=== PATIENT | male | born 1980 | race Hispanic/Latino ===

== ENCOUNTER 2021-04-10 12:11 | Inpatient (IN) | payer SELFPAY ==
[~2021-04-10] VITALS: Ht 175.3 cm; Wt 122.5 kg
[2021-04-10 12:57] LABS: BASOPHILS % 0.4 % (0.0-1.0); EOSINOPHILS # (AUTO) 0.1 (0.0-0.4); EOSINOPHILS % 0.8 % (0.0-6.0); HEMATOCRIT 42.7 % (38.2-49.6); HEMOGLOBIN 14.3 g/dL (14.0-18.0); LYMPHOCYTES # (AUTO) 0.8 (1.0-3.2); LYMPHOCYTES % 8.5 % (18.0-39.1); MEAN CORPUSCULAR HEMOGLOBIN 28.3 pg (28-32); MEAN CORPUSCULAR HGB CONC 33.5 g/dL (31-35); MEAN CORPUSCULAR VOLUME 84.4 fL (81-99); MONOCYTES # (AUTO) 0.4 (0.2-0.8); MONOCYTES % 4.1 % (4.4-11.3); NEUTROPHILS # (AUTO) 7.7 (2.1-6.9); NEUTROPHILS % 85.9 % (38.7-80.0); PLATELET COUNT 277 x10e3/uL (140-360); RED BLOOD COUNT 5.06 x10e6/uL (4.3-5.7); RED CELL DISTRIBUTION WIDTH 13.2 % (11.7-14.4)
[2021-04-10 13:02] LABS: INR 0.86; PROTHROMBIN TIME 12.4 seconds (11.9-14.5)
[2021-04-10 13:12] LABS: ALBUMIN 2.4 g/dL (3.5-5.0); ALBUMIN/GLOBULIN RATIO 0.5 (0.8-2.0); ANION GAP 16.3 mmol/L (8-16); CALCIUM 8.4 mg/dL (8.4-10.2); CREATININE, SERUM 2.5 mg/dL (0.72-1.25); POTASSIUM 4.3 mmol/L (3.5-5.1)
[2021-04-10] MEDS ORDERED: INSULIN REGULAR, HUMAN 100 UNIT/1 ML IV ONE ×2 (13:30→13:45)
[2021-04-10] MEDS ORDERED: SODIUM CHLORIDE 0.9% 1000ML 2,000 ML IV SCH (13:30)
[2021-04-10] MEDS ORDERED: SODIUM CHLORIDE 0.9% 1000ML 2,000 ML ONE (13:37)
[2021-04-10 13:47] LABS: ABG HCO3 23 mmol/L (22-26); ABG PCO2 36 mmHg (35-45); ABG PH 7.42 (7.35-7.45); ABG PO2 92 mmHg (80-105); ABG TCO2 24
[2021-04-10 13:51] LABS: AMPHETAMINES SCREEN,URINE NEGATIVE (NEGATIVE); BENZODIAZEPINES SCREEN,URINE NEGATIVE (NEGATIVE); CLARITY,URINE CLEAR (CLEAR); COLOR,URINE YELLOW (YELLOW); KETONES,URINE NEGATIVE (NEGATIVE); LEUKOCYTE ESTERASE ,URINE NEGATIVE (NEGATIVE); NITRITE,URINE NEGATIVE (NEGATIVE); PHENCYCLIDINE SCREEN,URINE NEGATIVE (NEGATIVE); PROTEIN,URINE DIPSTICK >=300 (NEGATIVE); URINE UROBILINOGEN 0.2 mg/dL (0.2 - 1)
[2021-04-10 14:03] LABS: BACTERIA,URINE RARE /HPF
[2021-04-10] MEDS ORDERED: INSULIN LISPRO 100 UNIT/1 ML 3ML VIAL SQ ONE (14:15)
[2021-04-10] MEDS ORDERED: ONDANSETRON HCL INJ 2MG/ML 2ML 2 MG/ML VIAL IV PRN (14:15)
[2021-04-10] MEDS ORDERED: DEXTROSE 50% SYRINGE 50 ML IV PRN ×3 (14:30→15:15)
[2021-04-10] MEDS: SODIUM CHLORIDE 0.9% 1000ML 1,000 ML IV SCH ×2 (14:40→22:08)
[2021-04-10 15:40] VITALS: BP 166/94
[2021-04-10 16:04] VITALS: BP 160/95
[2021-04-10] MEDS: INSULIN REGULAR, HUMAN 100 UNIT/1 ML SQ SCH ×2 (16:11→22:10)
[2021-04-10 16:16] VITALS: BP 160/95
[2021-04-10 16:20] VITALS: BP 160/95
[2021-04-10] MEDS ORDERED: METFORMIN HCL500 MG PO (16:24)
[2021-04-10] MEDS ORDERED: PLAVIX75 MG PO (16:25)
[2021-04-10] MEDS ORDERED: ASPIRIN81 MG PO (16:25)
[2021-04-10] MEDS ORDERED: CARVEDILOL3.125 MG PO (17:10)
[2021-04-10] MEDS ORDERED: FUROSEMIDE40 MG PO (17:11)
[2021-04-10] MEDS ORDERED: ATORVASTATIN CA40 MG PO (17:12)
[2021-04-10] MEDS ORDERED: MULTI-VITAMIN1 EACH PO (17:13)
[2021-04-10 20:51] VITALS: BP 140/95
[2021-04-10 20:58] VITALS: BP 140/95
[2021-04-10] MEDS ORDERED: INSULIN GLARGINE 100 UNITS/ML VIAL SQ ONE (21:00)
[2021-04-11] VITALS: BP 138/90
[2021-04-11 04:00] VITALS: BP 120/90
[2021-04-11 05:47] LABS: BASOPHILS % 0.4 % (0.0-1.0); EOSINOPHILS # (AUTO) 0.2 (0.0-0.4); EOSINOPHILS % 2.9 % (0.0-6.0); HEMATOCRIT 36.4 % (38.2-49.6); HEMOGLOBIN 12.2 g/dL (14.0-18.0); LYMPHOCYTES # (AUTO) 1.5 (1.0-3.2); LYMPHOCYTES % 20.6 % (18.0-39.1); MEAN CORPUSCULAR HEMOGLOBIN 28.6 pg (28-32); MEAN CORPUSCULAR HGB CONC 33.5 g/dL (31-35); MEAN CORPUSCULAR VOLUME 85.2 fL (81-99); MONOCYTES # (AUTO) 0.5 (0.2-0.8); MONOCYTES % 6.5 % (4.4-11.3); NEUTROPHILS # (AUTO) 5.1 (2.1-6.9); NEUTROPHILS % 69.1 % (38.7-80.0); PLATELET COUNT 234 x10e3/uL (140-360); RED BLOOD COUNT 4.27 x10e6/uL (4.3-5.7); RED CELL DISTRIBUTION WIDTH 13.2 % (11.7-14.4)
[2021-04-11 06:22] LABS: ANION GAP 12.2 mmol/L (8-16); CALCIUM 8.1 mg/dL (8.4-10.2); CREATININE, SERUM 2.12 mg/dL (0.72-1.25); POTASSIUM 3.2 mmol/L (3.5-5.1)
[2021-04-11] MEDS: SODIUM CHLORIDE 0.9% 1000ML 1,000 ML IV SCH (06:38)
[2021-04-11] MEDS ORDERED: INS LISP PRO/LISP HUMAN 75/25 100 UNITS/ML VIAL SC SCH (07:30)
[2021-04-11 08:00] VITALS: BP 135/84
[2021-04-11] MEDS: INSULIN REGULAR, HUMAN 100 UNIT/1 ML SQ SCH (08:13)
[2021-04-11 08:29] VITALS: BP 135/84
[2021-04-11] MEDS ORDERED: POTASSIUM CHLORIDE 10MEQ EA PO ONE (09:00)
[2021-04-11 10:27] VITALS: BP 153/88
== END 2021-04-11 11:09 | disposition home or self-care (01) | DRG 638 ==
LOC: ER 13:32 → ERHOLD 14:17 → MED/SURG 15:40
PROVIDERS: ADMIT Internal Medicine; ATTEND Internal Medicine
DX: E11.65 Type 2 diabetes mellitus with hyperglycemia (principal); N17.9 Acute kidney failure, unspecified; E87.1 Hypo-osmolality and hyponatremia; R27.0 Ataxia, unspecified; Z91.14 Patient's other noncompliance with medication regimen; Z20.822 Contact with and (suspected) exposure to COVID-19; Z59.89 Other problems related to housing and economic circumstances; E11.22 Type 2 diabetes mellitus with diabetic chronic kidney disease; I12.9 Hypertensive chronic kidney disease with stage 1 through stage 4 chronic kidney disease, or unspecified chronic kidney disease; N18.30 Chronic kidney disease, stage 3 unspecified; Z79.899 Other long term (current) drug therapy; Z86.73 Personal history of transient ischemic attack (TIA), and cerebral infarction without residual deficits; I25.2 Old myocardial infarction
CPT/HCPCS: 36415; 36600; 70450; 70551; 80048; 80053; 80307; 81001; 82805; 82948; 83735; 85025; 85610; 93005; 94799; 99284; J1815; J1817; J7030; U0002

== ENCOUNTER 2022-08-03 16:30 | Inpatient (IN) | payer OTHER ==
[~2022-08-03] VITALS: Ht 162.6 cm; Wt 122.5 kg
[~2022-08-03 16:30] MED LIST: ASPIRIN81 MG PO; ATORVASTATIN CA40 MG PO; CARVEDILOL3.125 MG PO; FUROSEMIDE40 MG PO; METFORMIN HCL500 MG PO; MULTI-VITAMIN1 EACH PO; PLAVIX75 MG PO
[2022-08-03 17:18] LABS: BASOPHILS % 0.2 % (0.0-1.0); EOSINOPHILS # (AUTO) 0.1 (0.0-0.4); EOSINOPHILS % 0.5 % (0.0-6.0); HEMATOCRIT 34.8 % (38.2-49.6); HEMOGLOBIN 10.9 g/dL (14.0-18.0); LYMPHOCYTES # (AUTO) 0.3 (1.0-3.2); LYMPHOCYTES % 2.2 % (18.0-39.1); MEAN CORPUSCULAR HEMOGLOBIN 28.2 pg (28-32); MEAN CORPUSCULAR HGB CONC 31.3 g/dL (31-35); MEAN CORPUSCULAR VOLUME 90.2 fL (81-99); MONOCYTES # (AUTO) 0.7 (0.2-0.8); MONOCYTES % 5.5 % (4.4-11.3); NEUTROPHILS # (AUTO) 11.5 (2.1-6.9); NEUTROPHILS % 91.1 % (38.7-80.0); PLATELET COUNT 298 x10e3/uL (140-360); RED BLOOD COUNT 3.86 x10e6/uL (4.3-5.7); RED CELL DISTRIBUTION WIDTH 15.5 % (11.7-14.4)
[2022-08-03] MEDS ORDERED: NAPROXEN250 MG PO (17:20)
[2022-08-03 17:43] LABS: ALBUMIN 1.9 g/dL (3.5-5.0); ALBUMIN/GLOBULIN RATIO 0.4 (0.8-2.0); ANION GAP 21.8 mmol/L (8-16); CALCIUM 7.6 mg/dL (8.4-10.2); CREATININE, SERUM 6.84 mg/dL (0.72-1.25); POTASSIUM 3.8 mmol/L (3.5-5.1)
[2022-08-03 17:54] LABS: CLARITY,URINE CLOUDY (CLEAR); COLOR,URINE YELLOW (YELLOW); KETONES,URINE NEGATIVE (NEGATIVE); LEUKOCYTE ESTERASE ,URINE TRACE (NEGATIVE); NITRITE,URINE NEGATIVE (NEGATIVE); PROTEIN,URINE DIPSTICK >=300 (NEGATIVE); URINE UROBILINOGEN 0.2 mg/dL (0.2 - 1)
[2022-08-03 17:59] LABS: AMORPHOUS SEDIMENT,URINE MANY (FEW); BACTERIA,URINE MANY /HPF; EPITHELIAL CELLS,URINE FEW /LPF; MUCUS,URINE MANY (RARE)
[2022-08-03] MEDS ORDERED: SODIUM CHLORIDE 0.9% 1000ML 1,000 ML IV SCH (18:15)
[2022-08-03] MEDS: SODIUM CHLORIDE 0.9% 1000ML 1,000 ML IV SCH (19:23)
[2022-08-03] MEDS: ATORVASTATIN 40 MG TAB PO SCH (21:00)
[2022-08-03 21:33] VITALS: BP 103/60
[2022-08-03 21:37] LABS: CHOL/HDL RATIO 3.5 (3.9-4.7)
[2022-08-03 22:15] VITALS: BP 103/60
[2022-08-03 22:17] VITALS: BP 103/60
[2022-08-04] VITALS (7 sets, daily range): BP systolic 93–120; BP diastolic 59–77
[2022-08-04] MEDS: SODIUM CHLORIDE 0.9% 1000ML 1,000 ML IV SCH ×2 (03:40→09:56)
[2022-08-04 05:59] LABS: BASOPHILS % 0.3 % (0.0-1.0); EOSINOPHILS % 0.3 % (0.0-6.0); HEMATOCRIT 33.6 % (38.2-49.6); HEMOGLOBIN 10.4 g/dL (14.0-18.0); LYMPHOCYTES # (AUTO) 0.4 (1.0-3.2); MEAN CORPUSCULAR HEMOGLOBIN 27.8 pg (28-32); MEAN CORPUSCULAR VOLUME 89.8 fL (81-99); MONOCYTES # (AUTO) 0.8 (0.2-0.8); MONOCYTES % 6.8 % (4.4-11.3); NEUTROPHILS # (AUTO) 10.4 (2.1-6.9); NEUTROPHILS % 89.1 % (38.7-80.0); PLATELET COUNT 281 x10e3/uL (140-360); RED BLOOD COUNT 3.74 x10e6/uL (4.3-5.7); RED CELL DISTRIBUTION WIDTH 15.6 % (11.7-14.4)
[2022-08-04 06:33] LABS: ANION GAP 22.8 mmol/L (8-16); CALCIUM 7.2 mg/dL (8.4-10.2); CREATININE, SERUM 7.3 mg/dL (0.72-1.25); POTASSIUM 3.8 mmol/L (3.5-5.1)
[2022-08-04 07:03] LABS: MAGNESIUM 1.8 MG/DL (1.3-2.1); PHOSPHORUS 9.1 MG/DL (2.3-4.7)
[2022-08-04] MEDS: ONDANSETRON HCL INJ 2MG/ML 2ML 2 MG/ML VIAL IV PRN ×3 (09:51→17:53)
[2022-08-04] MEDS: MULTIVITAMINS/MINERALS TAB PO SCH (09:51)
[2022-08-04] MEDS: Morphine 4mg INJECTION 4 MG/ML INJ IV PRN ×3 (09:51→17:53)
[2022-08-04] MEDS: CLOPIDOGREL BISULFATE 75 MG TAB PO SCH (09:51)
[2022-08-04] MEDS: CARVEDILOL 3.125 MG TAB PO SCH ×2 (09:52→17:00)
[2022-08-04] MEDS: ASPIRIN 81 MG CHEW TAB PO SCH (09:52)
[2022-08-04] MEDS ORDERED: SODIUM BICARBONATE 8.4% 50 ML in SODIUM CHLORIDE 0.45% 1,000 ML IV SCH (12:30)
[2022-08-04] MEDS: Doxycycline IV 100 MG in SODIUM CHLORIDE 0.9% 100 ML IV SCH ×2 (14:02→23:39)
[2022-08-04] MEDS ORDERED: SODIUM BICARBONATE 8.4% 150 ML in DEXTROSE 5% 1,000 ML IV SCH (16:00)
[2022-08-04] MEDS ORDERED: SODIUM BICARBONATE 8.4% IV SCH (16:00)
[2022-08-04] MEDS ORDERED: DEXTROSE 5% IV SCH (16:00)
[2022-08-04] MEDS: FUROSEMIDE INJ 10 MG/ML 2 ML VIAL IV SCH ×2 (16:59→17:06)
[2022-08-04 19:23] LABS: ANION GAP 22.4 mmol/L (8-16); CALCIUM 7.1 mg/dL (8.4-10.2); CREATININE, SERUM 7.56 mg/dL (0.72-1.25); POTASSIUM 4.4 mmol/L (3.5-5.1)
[2022-08-04] MEDS: ATORVASTATIN 40 MG TAB PO SCH (23:38)
[2022-08-05 05:59] LABS: BASOPHILS % 0.3 % (0.0-1.0); EOSINOPHILS # (AUTO) 0.1 (0.0-0.4); EOSINOPHILS % 0.8 % (0.0-6.0); HEMATOCRIT 30.5 % (38.2-49.6); HEMOGLOBIN 9.4 g/dL (14.0-18.0); LYMPHOCYTES # (AUTO) 0.4 (1.0-3.2); LYMPHOCYTES % 3.3 % (18.0-39.1); MEAN CORPUSCULAR HEMOGLOBIN 27.6 pg (28-32); MEAN CORPUSCULAR HGB CONC 30.8 g/dL (31-35); MEAN CORPUSCULAR VOLUME 89.7 fL (81-99); MONOCYTES # (AUTO) 0.9 (0.2-0.8); MONOCYTES % 7.4 % (4.4-11.3); NEUTROPHILS # (AUTO) 10.4 (2.1-6.9); NEUTROPHILS % 87.9 % (38.7-80.0); PLATELET COUNT 298 x10e3/uL (140-360); RED CELL DISTRIBUTION WIDTH 15.7 % (11.7-14.4)
[2022-08-05 06:27] LABS: ANION GAP 23.1 mmol/L (8-16); CALCIUM 7.1 mg/dL (8.4-10.2); CREATININE, SERUM 7.71 mg/dL (0.72-1.25); POTASSIUM 4.1 mmol/L (3.5-5.1)
[2022-08-05 06:53] LABS: MAGNESIUM 1.8 MG/DL (1.3-2.1); PHOSPHORUS 9.4 MG/DL (2.3-4.7)
[2022-08-05] MEDS ORDERED: DEXTROSE 5% 1,000 ML IV ONE (06:53)
[2022-08-05 07:49] VITALS: BP 105/72
[2022-08-05 08:10] VITALS: BP 105/72
[2022-08-05] MEDS: CLOPIDOGREL BISULFATE 75 MG TAB PO SCH (08:12)
[2022-08-05] MEDS: Doxycycline IV 100 MG in SODIUM CHLORIDE 0.9% 100 ML IV SCH ×2 (08:12→21:52)
[2022-08-05] MEDS: Morphine 4mg INJECTION 4 MG/ML INJ IV PRN ×3 (08:13→17:58)
[2022-08-05] MEDS: MULTIVITAMINS/MINERALS TAB PO SCH (08:13)
[2022-08-05] MEDS: ASPIRIN 81 MG CHEW TAB PO SCH (08:13)
[2022-08-05] MEDS: ONDANSETRON HCL INJ 2MG/ML 2ML 2 MG/ML VIAL IV PRN ×2 (08:13→17:58)
[2022-08-05] MEDS: CARVEDILOL 3.125 MG TAB PO SCH ×2 (08:13→18:04)
[2022-08-05] MEDS: FUROSEMIDE INJ 10 MG/ML 2 ML VIAL IV SCH (08:13)
[2022-08-05] MEDS ORDERED: FUROSEMIDE INJ 100 MG in SODIUM CHLORIDE 0.9% 90 ML IV SCH (11:00)
[2022-08-05] MEDS ORDERED: SODIUM CHLORIDE 0.9% 250ML 250 ML ONE (11:51)
[2022-08-05 11:56] VITALS: BP 101/60
[2022-08-05] MEDS ORDERED: ALBUMIN 25% 25GM 100ML 0.25 GM/ML BTL IV SCH (12:00)
[2022-08-05] MEDS: ALBUMIN 25% 25GM 100ML 100 ML IV SCH ×3 (12:01→23:39)
[2022-08-05] MEDS: CALCIUM GLUC 1 G/50 ML NACL 50 ML IV SCH ×2 (13:06→13:49)
[2022-08-05 13:59] LABS: CREATININE,URINE RANDOM 122.37 mg/dL (63-166)
[2022-08-05 14:00] LABS: TOTAL PROTEIN, URINE 348.9 mg/dL (1-14)
[2022-08-05 17:12] VITALS: BP 119/83
[2022-08-05] MEDS: SODIUM BICARBONATE 650 MG TAB PO SCH ×2 (18:02→21:53)
[2022-08-05] MEDS: CALCIUM ACETATE 667 MG GELCAP PO SCH ×2 (18:03→21:53)
[2022-08-05] MEDS: FUROSEMIDE INJ 100 MG in SODIUM CHLORIDE 0.9% 90 ML IV SCH ×2 (19:00→23:36)
[2022-08-05 20:00] VITALS: BP 142/97
[2022-08-05] MEDS ORDERED: DEXTROSE 50% SYRINGE 50 ML IV PRN (20:45)
[2022-08-05 21:00] VITALS: BP 142/97
[2022-08-05] MEDS: INSULIN REGULAR, HUMAN 100 UNIT/1 ML SQ SCH (21:50)
[2022-08-05] MEDS: ATORVASTATIN 40 MG TAB PO SCH (21:53)
[2022-08-05] MEDS ORDERED: LOSARTAN POTASS25 MG PO (23:19)
[2022-08-05] MEDS ORDERED: tylenol #3 PO (23:19)
[2022-08-05] MEDS ORDERED: CETIRIZINE HCL10 MG PO (23:19)
[2022-08-06] VITALS (7 sets, daily range): BP systolic 104–125; BP diastolic 69–99
[2022-08-06 04:56] LABS: BASOPHILS % 0.3 % (0.0-1.0); EOSINOPHILS # (AUTO) 0.1 (0.0-0.4); EOSINOPHILS % 0.6 % (0.0-6.0); HEMATOCRIT 29.7 % (38.2-49.6); HEMOGLOBIN 9.2 g/dL (14.0-18.0); LYMPHOCYTES # (AUTO) 0.3 (1.0-3.2); LYMPHOCYTES % 3.6 % (18.0-39.1); MEAN CORPUSCULAR VOLUME 90.3 fL (81-99); MONOCYTES # (AUTO) 0.8 (0.2-0.8); MONOCYTES % 8.5 % (4.4-11.3); NEUTROPHILS # (AUTO) 7.6 (2.1-6.9); NEUTROPHILS % 86.5 % (38.7-80.0); PLATELET COUNT 265 x10e3/uL (140-360); RED BLOOD COUNT 3.29 x10e6/uL (4.3-5.7); RED CELL DISTRIBUTION WIDTH 15.7 % (11.7-14.4)
[2022-08-06] MEDS: FUROSEMIDE INJ 100 MG in SODIUM CHLORIDE 0.9% 90 ML IV SCH (05:05)
[2022-08-06] MEDS: ALBUMIN 25% 25GM 100ML 100 ML IV SCH (05:05)
[2022-08-06 05:16] LABS: ALBUMIN 2.6 g/dL (3.5-5.0); ALBUMIN/GLOBULIN RATIO 0.6 (0.8-2.0); ANION GAP 23.2 mmol/L (8-16); CALCIUM 7.2 mg/dL (8.4-10.2); CREATININE, SERUM 8.37 mg/dL (0.72-1.25); MAGNESIUM 1.9 MG/DL (1.3-2.1); PHOSPHORUS 9.5 MG/DL (2.3-4.7); POTASSIUM 4.2 mmol/L (3.5-5.1)
[2022-08-06] MEDS: INSULIN REGULAR, HUMAN 100 UNIT/1 ML SQ SCH ×4 (08:30→21:45)
[2022-08-06] MEDS: CARVEDILOL 3.125 MG TAB PO SCH ×2 (09:00→18:15)
[2022-08-06] MEDS: Doxycycline IV 100 MG in SODIUM CHLORIDE 0.9% 100 ML IV SCH ×2 (09:58→21:46)
[2022-08-06] MEDS: MULTIVITAMINS/MINERALS TAB PO SCH (10:01)
[2022-08-06] MEDS: ASPIRIN 81 MG CHEW TAB PO SCH (10:01)
[2022-08-06] MEDS: CALCIUM ACETATE 667 MG GELCAP PO SCH ×3 (10:04→21:45)
[2022-08-06] MEDS: SODIUM BICARBONATE 650 MG TAB PO SCH ×3 (10:05→21:46)
[2022-08-06 10:20] LABS: TOTAL IRON BINDING CAPACITY 146 ug/dL (261-478); TRANSFERRIN 104 mg/dL (174-364)
[2022-08-06 10:21] LABS: % IRON SATURATION 3 % (15-50); IRON < 5 ug/dL (65-175)
[2022-08-06] MEDS: CALCITRIOL 0.25 MCG CAP PO SCH (11:00)
[2022-08-06 11:32] LABS: INR 1.5; PROTHROMBIN TIME 18.6 seconds (11.9-14.5)
[2022-08-06] MEDS ORDERED: LEVOTHYROXINE50 MCG PO (11:45)
[2022-08-06] MEDS ORDERED: insulin 70/30 SC (11:45)
[2022-08-06] MEDS ORDERED: LEVEMIR FL100 UNIT/1 SC (11:45)
[2022-08-06] MEDS ORDERED: FENTANYL CITRATE/PF 100MCG/2 ML INJ ONE (12:42)
[2022-08-06] MEDS ORDERED: MIDAZOLAM HCL 2 MG/2 ML VIAL ONE (12:42)
[2022-08-06] MEDS ORDERED: SODIUM CHLORIDE 0.9% 250ML 250 ML ONE ×2 (12:42→13:15)
[2022-08-06] MEDS ORDERED: HEPARIN SOD (PORCINE) 1000 UNIT/ML SDV ONE (12:50)
[2022-08-06] MEDS ORDERED: LIDOCAINE HCL 1% LOCAL INJ 20 ML VIAL ONE (13:15)
[2022-08-06] MEDS ORDERED: SODIUM CHLORIDE 0.9% 1000ML 1,000 ML ONE (15:11)
[2022-08-06] MEDS ORDERED: SODIUM CHLORIDE 0.9% 1000ML 2,000 ML IV PRN (15:15)
[2022-08-06] MEDS ORDERED: MANNITOL 25% 12.5GM/50 ML VIAL IV PRN (15:15)
[2022-08-06] MEDS ORDERED: HEPARIN SOD (PORCINE) 1000 UNIT/ML SDV IV PRN (15:15)
[2022-08-06] MEDS ORDERED: EPOETIN ALFA-EPBX 10,000 UNIT/ML VIAL SC SCH (17:00)
[2022-08-06 18:28] LABS: FREE T4 (FREE THYROXINE) 0.92 ng/dL (0.8-1.8); THYROID STIMULATING HORMONE 3.494 uIU/mL (0.350-4.940)
[2022-08-06] MEDS: ATORVASTATIN 40 MG TAB PO SCH (21:46)
[2022-08-06] MEDS: EPOETIN ALFA-EPBX 10,000 UNIT/ML VIAL SC SCH (21:46)
[2022-08-07] VITALS (8 sets, daily range): BP systolic 102–118; BP diastolic 66–84
[2022-08-07 05:21] LABS: BASOPHILS % 0.2 % (0.0-1.0); EOSINOPHILS # (AUTO) 0.1 (0.0-0.4); EOSINOPHILS % 0.9 % (0.0-6.0); HEMATOCRIT 29.3 % (38.2-49.6); HEMOGLOBIN 9.3 g/dL (14.0-18.0); LYMPHOCYTES # (AUTO) 0.5 (1.0-3.2); LYMPHOCYTES % 4.8 % (18.0-39.1); MEAN CORPUSCULAR HEMOGLOBIN 27.5 pg (28-32); MEAN CORPUSCULAR HGB CONC 31.7 g/dL (31-35); MEAN CORPUSCULAR VOLUME 86.7 fL (81-99); MONOCYTES # (AUTO) 0.9 (0.2-0.8); MONOCYTES % 8.9 % (4.4-11.3); NEUTROPHILS # (AUTO) 8.3 (2.1-6.9); NEUTROPHILS % 84.8 % (38.7-80.0); PLATELET COUNT 269 x10e3/uL (140-360); RED BLOOD COUNT 3.38 x10e6/uL (4.3-5.7); RED CELL DISTRIBUTION WIDTH 15.9 % (11.7-14.4)
[2022-08-07 05:44] LABS: ALBUMIN 2.5 g/dL (3.5-5.0); ALBUMIN/GLOBULIN RATIO 0.6 (0.8-2.0); ANION GAP 23.9 mmol/L (8-16); CALCIUM 7.3 mg/dL (8.4-10.2); CREATININE, SERUM 7.65 mg/dL (0.72-1.25); MAGNESIUM 1.8 MG/DL (1.3-2.1); PHOSPHORUS 7.4 MG/DL (2.3-4.7); POTASSIUM 3.9 mmol/L (3.5-5.1)
[2022-08-07] MEDS: MULTIVITAMINS/MINERALS TAB PO SCH (09:00)
[2022-08-07] MEDS: SODIUM BICARBONATE 650 MG TAB PO SCH ×3 (09:00→20:24)
[2022-08-07] MEDS: CALCIUM ACETATE 667 MG GELCAP PO SCH ×3 (09:00→20:24)
[2022-08-07] MEDS: ASPIRIN 81 MG CHEW TAB PO SCH (09:00)
[2022-08-07] MEDS: CARVEDILOL 3.125 MG TAB PO SCH ×2 (09:00→17:19)
[2022-08-07] MEDS: Doxycycline IV 100 MG in SODIUM CHLORIDE 0.9% 100 ML IV SCH ×2 (09:00→20:25)
[2022-08-07] MEDS: INSULIN REGULAR, HUMAN 100 UNIT/1 ML SQ SCH ×4 (09:07→20:34)
[2022-08-07] MEDS ORDERED: ALBUMIN 25% 12.5GM 0.25 GM/ML BTL IV PRN (10:15)
[2022-08-07] MEDS: CALCITRIOL 0.25 MCG CAP PO SCH (15:20)
[2022-08-07] MEDS: ATORVASTATIN 40 MG TAB PO SCH (20:23)
[2022-08-08] VITALS (8 sets, daily range): BP systolic 101–128; BP diastolic 71–81
[2022-08-08 04:59] LABS: BASOPHILS % 0.3 % (0.0-1.0); EOSINOPHILS # (AUTO) 0.2 (0.0-0.4); EOSINOPHILS % 1.7 % (0.0-6.0); HEMATOCRIT 30.2 % (38.2-49.6); HEMOGLOBIN 9.6 g/dL (14.0-18.0); LYMPHOCYTES # (AUTO) 0.5 (1.0-3.2); LYMPHOCYTES % 4.9 % (18.0-39.1); MEAN CORPUSCULAR HEMOGLOBIN 27.7 pg (28-32); MEAN CORPUSCULAR HGB CONC 31.8 g/dL (31-35); MEAN CORPUSCULAR VOLUME 87.3 fL (81-99); MONOCYTES # (AUTO) 0.9 (0.2-0.8); MONOCYTES % 9.5 % (4.4-11.3); NEUTROPHILS # (AUTO) 7.9 (2.1-6.9); NEUTROPHILS % 83.2 % (38.7-80.0); PLATELET COUNT 244 x10e3/uL (140-360); RED BLOOD COUNT 3.46 x10e6/uL (4.3-5.7); RED CELL DISTRIBUTION WIDTH 15.8 % (11.7-14.4)
[2022-08-08 05:22] LABS: ANION GAP 20.6 mmol/L (8-16); CALCIUM 7.5 mg/dL (8.4-10.2); CREATININE, SERUM 6.47 mg/dL (0.72-1.25); MAGNESIUM 1.8 MG/DL (1.3-2.1); PHOSPHORUS 5.6 MG/DL (2.3-4.7); POTASSIUM 3.6 mmol/L (3.5-5.1)
[2022-08-08] MEDS: INSULIN REGULAR, HUMAN 100 UNIT/1 ML SQ SCH ×4 (07:30→20:50)
[2022-08-08] MEDS: Doxycycline IV 100 MG in SODIUM CHLORIDE 0.9% 100 ML IV SCH ×2 (15:06→20:45)
[2022-08-08] MEDS: MULTIVITAMINS/MINERALS TAB PO SCH (15:10)
[2022-08-08] MEDS: SODIUM BICARBONATE 650 MG TAB PO SCH ×2 (15:10→20:46)
[2022-08-08] MEDS: CALCITRIOL 0.25 MCG CAP PO SCH (15:10)
[2022-08-08] MEDS: CALCIUM ACETATE 667 MG GELCAP PO SCH ×2 (15:11→20:46)
[2022-08-08] MEDS: ASPIRIN 81 MG CHEW TAB PO SCH (15:11)
[2022-08-08] MEDS: CARVEDILOL 3.125 MG TAB PO SCH ×2 (15:11→17:44)
[2022-08-08] MEDS: FERROUS SULFATE 325 MG TAB PO SCH (17:44)
[2022-08-08] MEDS: ATORVASTATIN 40 MG TAB PO SCH (20:45)
[2022-08-08] MEDS: EPOETIN ALFA-EPBX 10,000 UNIT/ML VIAL SC SCH (20:47)
[2022-08-09] VITALS (9 sets, daily range): BP systolic 120–137; BP diastolic 74–91
[2022-08-09 05:17] LABS: ANION GAP 18.6 mmol/L (8-16); CALCIUM 7.6 mg/dL (8.4-10.2); CREATININE, SERUM 5.27 mg/dL (0.72-1.25); POTASSIUM 3.6 mmol/L (3.5-5.1)
[2022-08-09] MEDS: SODIUM BICARBONATE 650 MG TAB PO SCH ×3 (08:07→21:19)
[2022-08-09] MEDS: CALCIUM ACETATE 667 MG GELCAP PO SCH ×3 (08:07→21:19)
[2022-08-09] MEDS: ASPIRIN 81 MG CHEW TAB PO SCH (08:07)
[2022-08-09] MEDS: FERROUS SULFATE 325 MG TAB PO SCH ×2 (08:07→16:34)
[2022-08-09] MEDS: CALCITRIOL 0.25 MCG CAP PO SCH (08:07)
[2022-08-09] MEDS: MULTIVITAMINS/MINERALS TAB PO SCH (08:08)
[2022-08-09] MEDS: Doxycycline IV 100 MG in SODIUM CHLORIDE 0.9% 100 ML IV SCH ×2 (08:16→21:19)
[2022-08-09] MEDS: INSULIN REGULAR, HUMAN 100 UNIT/1 ML SQ SCH ×4 (08:24→21:00)
[2022-08-09] MEDS: CARVEDILOL 3.125 MG TAB PO SCH ×2 (09:00→16:39)
[2022-08-09] MEDS: ATORVASTATIN 40 MG TAB PO SCH (21:18)
[2022-08-10] VITALS (10 sets, daily range): BP systolic 110–138; BP diastolic 80–92
[2022-08-10] MEDS: Doxycycline IV 100 MG in SODIUM CHLORIDE 0.9% 100 ML IV SCH (08:33)
[2022-08-10] MEDS: MULTIVITAMINS/MINERALS TAB PO SCH (08:34)
[2022-08-10] MEDS: ASPIRIN 81 MG CHEW TAB PO SCH (08:34)
[2022-08-10] MEDS: CALCIUM ACETATE 667 MG GELCAP PO SCH ×3 (08:35→20:46)
[2022-08-10] MEDS: FERROUS SULFATE 325 MG TAB PO SCH ×2 (08:35→16:00)
[2022-08-10] MEDS: CALCITRIOL 0.25 MCG CAP PO SCH (08:35)
[2022-08-10] MEDS: CARVEDILOL 3.125 MG TAB PO SCH ×2 (08:36→16:00)
[2022-08-10] MEDS: SODIUM BICARBONATE 650 MG TAB PO SCH ×3 (08:38→20:46)
[2022-08-10] MEDS: INSULIN REGULAR, HUMAN 100 UNIT/1 ML SQ SCH ×4 (08:45→20:53)
[2022-08-10] MEDS ORDERED: Ferrous Sulfate PO (10:06)
[2022-08-10] MEDS ORDERED: LEVEMIR FL100 UNIT/1 SC (10:06)
[2022-08-10] MEDS ORDERED: ROCALTROL0.25 MCG PO (10:06)
[2022-08-10] MEDS ORDERED: Calcium Acetate PO (10:06)
[2022-08-10] MEDS ORDERED: SODIUM BICARBO650 MG PO (10:06)
[2022-08-10] MEDS: ATORVASTATIN 40 MG TAB PO SCH (20:46)
[2022-08-11 00:26] VITALS: BP 115/75
[2022-08-11 04:31] VITALS: BP 116/82
[2022-08-11 04:32] VITALS: BP 116/82
[2022-08-11 05:10] LABS: BASOPHILS % 0.4 % (0.0-1.0); EOSINOPHILS # (AUTO) 0.3 (0.0-0.4); EOSINOPHILS % 2.9 % (0.0-6.0); HEMATOCRIT 31.5 % (38.2-49.6); HEMOGLOBIN 9.7 g/dL (14.0-18.0); LYMPHOCYTES # (AUTO) 0.6 (1.0-3.2); MEAN CORPUSCULAR HEMOGLOBIN 27.5 pg (28-32); MEAN CORPUSCULAR HGB CONC 30.8 g/dL (31-35); MEAN CORPUSCULAR VOLUME 89.2 fL (81-99); MONOCYTES # (AUTO) 0.7 (0.2-0.8); MONOCYTES % 7.7 % (4.4-11.3); NEUTROPHILS # (AUTO) 7.4 (2.1-6.9); NEUTROPHILS % 81.6 % (38.7-80.0); PLATELET COUNT 216 x10e3/uL (140-360); RED BLOOD COUNT 3.53 x10e6/uL (4.3-5.7)
[2022-08-11 05:49] LABS: ANION GAP 17.9 mmol/L (8-16); CALCIUM 7.8 mg/dL (8.4-10.2); CREATININE, SERUM 6.99 mg/dL (0.72-1.25); MAGNESIUM 1.9 MG/DL (1.3-2.1); PHOSPHORUS 5.4 MG/DL (2.3-4.7); POTASSIUM 3.9 mmol/L (3.5-5.1)
[2022-08-11] MEDS: INSULIN REGULAR, HUMAN 100 UNIT/1 ML SQ SCH ×2 (07:30→11:33)
[2022-08-11 08:00] VITALS: BP 133/87
[2022-08-11] MEDS: FERROUS SULFATE 325 MG TAB PO SCH (08:00)
[2022-08-11] MEDS: ASPIRIN 81 MG CHEW TAB PO SCH (09:00)
[2022-08-11] MEDS: CARVEDILOL 3.125 MG TAB PO SCH (09:00)
[2022-08-11] MEDS: CALCIUM ACETATE 667 MG GELCAP PO SCH ×2 (09:00→15:00)
[2022-08-11] MEDS: CALCITRIOL 0.25 MCG CAP PO SCH (09:00)
[2022-08-11] MEDS: SODIUM BICARBONATE 650 MG TAB PO SCH ×2 (09:00→15:00)
[2022-08-11] MEDS: MULTIVITAMINS/MINERALS TAB PO SCH (09:00)
[2022-08-11 11:47] VITALS: BP 133/87
[2022-08-11 12:13] VITALS: BP 126/82
[2022-08-11] MEDS ORDERED: ONDANSETRON HCL 4 MG ORAL DISINTEGRATING TAB PO PRN (13:30)
== END 2022-08-11 14:55 | disposition home or self-care (01) | DRG 727 ==
LOC: ER 16:59 → ERHOLD 18:22 → MED/SURG 21:22
PROVIDERS: ADMIT Internal Medicine; ATTEND Internal Medicine
PROC: 5A1D70Z Performance of Urinary Filtration, Intermittent, Less than 6 Hours Per Day (ICD-10-PCS; principal; 2022-08-06)
PROC: 0JH63XZ Insertion of Tunneled Vascular Access Device into Chest Subcutaneous Tissue and Fascia, Percutaneous Approach (ICD-10-PCS; 2022-08-06)
DX: N49.2 Inflammatory disorders of scrotum (principal); I21.A1 Myocardial infarction type 2; J96.01 Acute respiratory failure with hypoxia; N18.6 End stage renal disease; N17.9 Acute kidney failure, unspecified; E87.20 Acidosis, unspecified; I12.0 Hypertensive chronic kidney disease with stage 5 chronic kidney disease or end stage renal disease; N39.0 Urinary tract infection, site not specified; Z20.822 Contact with and (suspected) exposure to COVID-19; D50.9 Iron deficiency anemia, unspecified; N13.9 Obstructive and reflux uropathy, unspecified; E16.2 Hypoglycemia, unspecified; E88.09 Other disorders of plasma-protein metabolism, not elsewhere classified; W19.XXXA Unspecified fall, initial encounter; E11.22 Type 2 diabetes mellitus with diabetic chronic kidney disease; I25.2 Old myocardial infarction; E78.00 Pure hypercholesterolemia, unspecified; R74.01 Elevation of levels of liver transaminase levels; Z99.81 Dependence on supplemental oxygen; Z79.02 Long term (current) use of antithrombotics/antiplatelets; Z79.82 Long term (current) use of aspirin; Z86.73 Personal history of transient ischemic attack (TIA), and cerebral infarction without residual deficits
CPT/HCPCS: 36415; 36558; 71045; 76770; 76857; 76870; 76937; 77001; 80048; 80053; 80061; 81001; 82570; 82948; 83036; 83540; 83605; 83735; 83880; 83970; 84100; 84156; 84439; 84443; 84466; 84480; 85025; 85610; 86705; 86706; 87040; 87071; 87086; 87186; 87205; 87340; 90962; 93306; 93970; 93976; 94799; 96372; 99152; 99153; 99252; 99284; C1887; C1892; J0690; J0696; J1644; J1940; J2001; J2250; J2270; J2405; J7030; J7050; J7070; P9047

== ENCOUNTER 2022-09-11 13:43 | Emergency (ER) | payer OTHER ==
[~2022-09-11] VITALS: Ht 162.6 cm; Wt 122.5 kg
[~2022-09-11 13:43] MED LIST changes: +CETIRIZINE HCL10 MG PO; +Calcium Acetate PO; +Ferrous Sulfate PO; +LEVEMIR FL100 UNIT/1 SC; +LEVOTHYROXINE50 MCG PO; +LOSARTAN POTASS25 MG PO; +NAPROXEN250 MG PO; +ROCALTROL0.25 MCG PO; +SODIUM BICARBO650 MG PO; +insulin 70/30 SC; +tylenol #3 PO
[2022-09-11] MEDS ORDERED: IOPAMIDOL 370 MG/ML 100 ML INFUS..BTL INJ ONE (14:28)
[2022-09-11] MEDS ORDERED: PIPERACILLIN/TAZOBACTAM 3.375 GM VIAL ONE (15:26)
[2022-09-11 18:00] VITALS: O2SAT 98
== END 2022-09-11 18:22 | disposition other institution (70) ==
LOC: FSED 13:50
DX: N49.2 Inflammatory disorders of scrotum (principal); N50.89 Other specified disorders of the male genital organs; I12.0 Hypertensive chronic kidney disease with stage 5 chronic kidney disease or end stage renal disease; E11.22 Type 2 diabetes mellitus with diabetic chronic kidney disease; E11.65 Type 2 diabetes mellitus with hyperglycemia; N18.6 End stage renal disease; Z99.2 Dependence on renal dialysis; E87.70 Fluid overload, unspecified; R94.31 Abnormal electrocardiogram [ECG] [EKG]; I25.2 Old myocardial infarction; Z86.73 Personal history of transient ischemic attack (TIA), and cerebral infarction without residual deficits
CPT/HCPCS: 71045; 74177; 80053; 85025; 93005; 99285; J2543; Q9967

== ENCOUNTER → 2024-09-22 | Day surgery (SDC) | payer MEDICARE, OTHER ==
[~2024-09-22] MED LIST changes: +ATORVASTATIN CA20 MG PO; +BENZONATATE100 MG PO; +CARVEDILOL12.5 MG PO; +HYDRALAZINE HCL25 MG; +LEVEMIR; +LIDOCAINE HCL 2% LOCAL INJ 5 ML SDV VIAL INJ ONE; +PROPOFOL IV EMULSION 10 MG/ML 20 ML VIAL ONE; +RENVELA0.8 GM PO; +SODIUM CHLORIDE 0.9% 500ML 500 ML ONE; +TRESIBA100 UNIT/1 SC
[2024-09-22 06:56] LABS: BASOPHILS % 0.5 % (0.0-1.0); EOSINOPHILS # (AUTO) 0.1 (0.0-0.4); EOSINOPHILS % 1.8 % (0.0-6.0); HEMATOCRIT 37.9 % (38.2-49.6); HEMOGLOBIN 12.1 g/dL (14.0-18.0); LYMPHOCYTES # (AUTO) 0.5 (1.0-3.2); LYMPHOCYTES % 8.7 % (18.0-39.1); MEAN CORPUSCULAR HEMOGLOBIN 32.3 pg (28-32); MEAN CORPUSCULAR HGB CONC 31.9 g/dL (31-35); MEAN CORPUSCULAR VOLUME 101.1 fL (81-99); MONOCYTES # (AUTO) 0.6 (0.2-0.8); MONOCYTES % 9.4 % (4.4-11.3); NEUTROPHILS # (AUTO) 4.7 (2.1-6.9); NEUTROPHILS % 79.3 % (38.7-80.0); PLATELET COUNT 277 x10e3/uL (140-360); RED BLOOD COUNT 3.75 x10e6/uL (4.3-5.7); RED CELL DISTRIBUTION WIDTH 17.1 % (11.7-14.4); WHITE BLOOD COUNT 5.98 x10e3/uL (4.8-10.8)
[2024-09-22 07:14] LABS: INR 0.95; PROTHROMBIN TIME 13.5 seconds (11.9-14.5)
[2024-09-22 07:15] LABS: PARTIAL THROMBOPLASTIN TIME 33.4 seconds (23.8-35.5)
[2024-09-22 07:59] LABS: ALBUMIN 2.6 g/dL (3.5-5.0); ALBUMIN/GLOBULIN RATIO 0.5 (0.8-2.0); ANION GAP 18.5 mmol/L (8-16); BILIRUBIN,TOTAL 0.5 mg/dL (0.2-1.2); CREATININE, SERUM 6.67 mg/dL (0.72-1.25); POTASSIUM 4.5 mmol/L (3.5-5.1); TOTAL PROTEIN 7.5 g/dL (6.5-8.1)
[2024-09-22 11:04] VITALS: TEMP 97
[2024-09-22 11:20] VITALS: BP 115/72; PULSE 80; RESP 16; O2SAT 97
== END | disposition home or self-care (01) ==
LOC: OR 05:56
PROVIDERS: ATTEND Internal Medicine Gastroenterology
DX: K29.50 Unspecified chronic gastritis without bleeding (principal); K25.7 Chronic gastric ulcer without hemorrhage or perforation; K21.9 Gastro-esophageal reflux disease without esophagitis; K44.9 Diaphragmatic hernia without obstruction or gangrene; K31.89 Other diseases of stomach and duodenum; K74.60 Unspecified cirrhosis of liver; K72.10 Chronic hepatic failure without coma; R18.8 Other ascites; K76.6 Portal hypertension; I12.0 Hypertensive chronic kidney disease with stage 5 chronic kidney disease or end stage renal disease; E11.22 Type 2 diabetes mellitus with diabetic chronic kidney disease; N18.6 End stage renal disease; Z99.2 Dependence on renal dialysis; Z79.4 Long term (current) use of insulin; E78.5 Hyperlipidemia, unspecified; I44.0 Atrioventricular block, first degree; I49.3 Ventricular premature depolarization; I45.2 Bifascicular block; I25.2 Old myocardial infarction; Z71.3 Dietary counseling and surveillance; Z68.37 Body mass index [BMI] 37.0-37.9, adult; Z86.73 Personal history of transient ischemic attack (TIA), and cerebral infarction without residual deficits; Z79.899 Other long term (current) drug therapy
CPT/HCPCS: 36415; 43239; 80053; 82948; 85025; 85610; 85730; 88305; 88342; 93005; J7040; J2003